=== PATIENT | female | born 1985 | race Caucasian/White ===

== ENCOUNTER 2017-07-20 13:09 | Emergency (ER) | payer OTHER ==
[2017-07-20 13:16] VITALS: BP 108/50; PULSE 106; TEMP 99.1; BMI 26.6
--- NOTE | 2017-07-20 15:47 | PDOC ---
History of Present Illness - General Chief Complaint: Cold Symptoms Stated Complaint: FEVER, COUGH Time Seen by Provider: 07/20/17 15:22 History Source: Patient Exam Limitations: No Limitations - History of Present Illness Initial Comments: 07/20/17 17:50 Patient is a 31-year-old female, no significant medical history currently on no medication presents with generalized body aches, fever, runny nose, congestion, child and with similar symptoms. Past Medical History: [Denies]. Allergies: No known allergies Medications: [None] Family History: Non-contributory Social History: Denies smoking, alcohol use, or IVDU Review of Systems GENERAL/CONSTITUTIONAL: [Fever, body aches, chills. No weakness. No weight change.] HEAD, EYES, EARS, NOSE AND THROAT: [No change in vision. No ear pain or discharge. No sore throat. Nasal congestion] CARDIOVASCULAR: [No chest pain or shortness of breath.] RESPIRATORY: [Moist cough, wheezing, or hemoptysis.] GASTROINTESTINAL: [No nausea, vomiting, diarrhea or constipation. No rectal bleeding.] GENITOURINARY: [No dysuria, frequency, or change in urination.] MUSCULOSKELETAL: [No joint or muscle swelling or pain. No neck or back pain.] SKIN AND BREASTS: [No rash or easy bruising.] NEUROLOGIC: [No headache, vertigo, loss of consciousness, or loss of sensation.] PSYCHIATRIC: [No depression or anxiety.] ENDOCRINE: [No increased thirst. No abnormal weight change.] HEMATOLOGIC/LYMPHATIC: [No anemia, easy bleeding, or history of blood clots.] ALLERGIC/IMMUNOLOGIC: [No hives or skin allergy. No latex allergy.] Physical Exam: GENERAL: [The patient is awake, alert, and fully oriented, in no acute distress. ] HEAD: [Normal with no signs of trauma.] EYES: [Pupils equal, round and reactive to light, extraocular movements intact, sclera anicteric, conjunctiva clear.] ENT: [Ears normal, nares patent, oropharynx clear without exudates. Moist mucous membranes. No uvula deviation] NECK: [Normal range of motion, supple without lymphadenopathy, JVD, or masses.] LUNGS: [Rhonchi bilaterally, no wheezes.] HEART: [Regular rate and rhythm, normal S1 and S2 without murmur, rub or gallop. ] ABDOMEN: [Soft, nontender, normoactive bowel sounds. No guarding, no rebound. No masses. No bruising or abrasions] RECTAL : [Guaiac negative, normal rectal tone.] MUSCULOSKELETAL: [Normal range of motion, no edema. No clubbing or cyanosis. No cords, erythema, or tenderness. No CVA Tenderness with fist.] NEUROLOGICAL: [Cranial nerves II through XII grossly intact. Normal speech, normal gait.] PSYCH: [Normal mood, normal affect.] SKIN: [Warm, Dry, normal turgor, no rashes or lesions noted.] 07/20/17 17:51 Past History - Past Medical History Allergies/Adverse Reactions: Allergies Allergy/AdvReac Type Severity Reaction Status Date / Time No Known Allergies Allergy Verified 07/20/17 13:14 Home Medications: Ambulatory Orders Azithromycin [Zithromax 250mg Tablets -] 250 mg PO UTDICT #6 tab 07/20/17 Oseltamivir Phosphate [Tamiflu -] 75 mg PO BID #10 capsule 07/20/17 Asthma: No Cancer: No Cardiac Disorders: No COPD: No Diabetes: No HTN: No Seizures: No Thyroid Disease: No - Surgical History Abdominal Surgery: Yes (UMB.HERNIA) - Suicide/Smoking/Psychosocial Hx Smoking History: Never smoked Have you smoked in the past 12 months: No Information on smoking cessation initiated: No Hx Alcohol Use: No Drug/Substance Use Hx: No Hx Substance Use Treatment: No *Physical Exam - Vital Signs Last Vital Signs Temp Pulse Resp BP Pulse Ox 99.1 F 106 H 18 108/50 100 07/20/17 13:14 07/20/17 13:14 07/20/17 13:14 07/20/17 13:14 07/20/17 13:14 Medical Decision Making - Medical Decision Making 07/20/17 17:51 A/P: Patient with influenza-type illness, we will discharge patient on a of Tamiflu, has been also with strep throat patient with moist productive cough and rhonchi will DC also on azithromycin I discussed the physical exam findings, ancillary test results and final diagnoses with the patient. I answered all of the patient's questions. The patient was satisfied with the care received and felt comfortable with the discharge plan and treatment plan. The patient will call to arrange follow-up and will return to the Emergency Department with any new, persistent or worsening symptoms. *DC/Admit/Observation/Transfer Diagnosis at time of Disposition: Exposure to influenza, Influenza-like symptoms - Discharge Dispostion Disposition: HOME Condition at time of disposition: Stable Admit: No - Prescriptions Prescriptions: Azithromycin [Zithromax 250mg Tablets -] 250 mg PO UTDICT #6 tab Oseltamivir Phosphate [Tamiflu -] 75 mg PO BID #10 capsule - Referrals Referrals: [facility] [Provider Group] - Patient Instructions Additional Instructions: Increase fluids to prevent dehydration Tylenol for headache Motrin for fever greater than 101.0 Please followup with primary care in 3 days if symptoms persist Return to emergency department any increased cough, fever, inability to drink or other concerns - Post Discharge Activity Forms/Work/School Notes: Back to Work
== END 2017-07-20 15:48 | disposition home or self-care (01) ==
LOC: JERFT 13:09
DX: J11.1 Influenza due to unidentified influenza virus with other respiratory manifestations (principal)
CPT/HCPCS: 99281-25

== ENCOUNTER 2019-03-27 08:59 | Emergency (ER) | payer OTHER ==
[2019-03-27 09:05] VITALS: BP 105/65; PULSE 66; TEMP 98.2; BMI 22.8
--- NOTE | 2019-03-27 09:17 | PDOC ---
History of Present Illness - General Chief Complaint: Pain, Acute Stated Complaint: FACIAL SWELLING / PAIN Time Seen by Provider: 03/27/19 09:10 - History of Present Illness Initial Comments: 03/27/19 09:17 CHIEF COMPLAINT: multiple HISTORY OF PRESENT ILLNESS: 33 yo F with no significant PMH presents to [facility] with multiple complaints. Patient states the left side of her face was swollen two days ago, but the majority of it has subsided and now just the left side of her forehead and her lips are swollen. She also c/o of a small rash to the right side of her hip, as well as generalized itching and pain to all her joints. She denies any fever, chills, nausea, vomiting diarrhea. No recent travel or sick contacts. PAST MEDICAL HISTORY: Denies past medical history FAMILY HISTORY: Denies SOCIAL HISTORY: Denies tobacco, alcohol, illicit drug use. SURGICAL HISTORY: Denies ALLERGIES: No known drug allergies REVIEW OF SYSTEMS General/Constitutional: Denies fever or chills. Denies weakness, weight change. HEENT: Denies change in vision. Denies ear pain or discharge. Denies sore throat. Cardiovascular: Denies chest pain or shortness of breath. Respiratory: Denies cough, wheezing, or hemoptysis. Gastrointestinal: Denies nausea, vomiting, diarrhea or constipation. Denies rectal bleeding. Genitourinary: Denies dysuria, frequency, or change in urination. Musculoskeletal: Pain to all joints, swelling to fingers. Skin: Rash to right hip. Neurologic: Denies headache, vertigo, loss of consciousness, or loss of sensation. Psychiatric: Denies depression or anxiety. PHYSICAL EXAM General Appearance: Well-appearing, appropriately dressed. No apparent distress , no intoxication. HEENT: Mild swelling to left forehead and lips. NO swelling to tongue, throat, uvula. No evidence of respiratory compromise. EOMI, PERRLA, normal ENT inspection, normal voice, TMs normal, pharynx normal. No conjunctival pallor. No photophobia, scleral icterus. Neck: Supple. Trachea midline. No tenderness, rigidity, carotid bruit, stridor , lymphadenopathy, or thyromegaly. Respiratory/Chest: Lungs CTAB. No shortness of breath, chest tenderness, respiratory distress, accessory muscle use. No crackles, rales, rhonchi, stridor , wheezing, dullness Cardiovascular: RRR. S1, S2. No JVD, murmur, bradycardia, tachycardia. Vascular Pulses: Dorsalis-Pedis (R): 2+, Dorsalis-Pedis (L): 2+ Gastrointestinal/Abdominal: Normal bowel sounds. Abdomen soft, non-distended. No tenderness or rebound tenderness. No organomegaly, pulsatile mass, guarding , hernia, hepatomegaly, splenomegaly. Lymphatic: No adenopathy, tenderness. Musculoskeletal/Extremities: Mild swelling to DIP and PIP of all fingers. FROM to all digits and extremities. Integumentary: Pruritic, macular, erythematous rash to R hip approximately 6 cm in diameter. Appropriate color, dry, warm. 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 Fully oriented, alert. Appropriate mood/affect. Motor strength 5/5. No appreciable EOM palsy, facial droop or sensory deficit. Past History - Past Medical History Allergies/Adverse Reactions: Allergies Allergy/AdvReac Type Severity Reaction Status Date / Time No Known Allergies Allergy Verified 03/27/19 09:05 Home Medications: Ambulatory Orders Azithromycin [Zithromax 250mg Tablets -] 250 mg PO UTDICT #6 tab 07/20/17 Oseltamivir Phosphate [Tamiflu -] 75 mg PO BID #10 capsule 07/20/17 Prednisone [Deltasone] 40 mg PO DAILY #8 tablet 03/27/19 Asthma: No Cancer: No Cardiac Disorders: No COPD: No Diabetes: No HTN: No Seizures: No Thyroid Disease: No - Surgical History Abdominal Surgery: Yes (UMB.HERNIA) - Psycho Social/Smoking Cessation Hx Smoking History: Never smoked Have you smoked in the past 12 months: No Hx Alcohol Use: No Drug/Substance Use Hx: No Hx Substance Use Treatment: No *Physical Exam - Vital Signs Last Vital Signs Temp Pulse Resp BP Pulse Ox 98.2 F 66 16 105/65 98 03/27/19 09:02 03/27/19 09:02 03/27/19 09:02 03/27/19 09:02 03/27/19 09:02 Medical Decision Making - Medical Decision Making 03/27/19 09:26 33 yo F with no significant PMH presents to [facility] with multiple complaints including pruritis, edema, and arthralgia. Suspicious for scleroderma vs autoimmune condition. -prednisone taper f/u with rheum/derm Advised patient to take medication as prescribed and follow up with rheumatology and derm within the next 1-2 weeks. Advised patient of signs and symptoms for return to ED. Patient verbalized understanding and agrees to plan. Discharge - Discharge Information Problems reviewed: Yes Clinical Impression/Diagnosis: Generalized pruritus Arthralgia Qualifiers: Joint pain location: unspecified Qualified Code(s): M25.50 - Pain in unspecified joint Condition: Stable Disposition: HOME - Admission No - Additional Discharge Information Prescriptions: Prednisone [Deltasone] 40 mg PO DAILY #8 tablet - Follow up/Referral Referrals: Osmin Conde MD [Staff Physician] - Kalen Brizuela MD [Non Staff, Medical] - Beth Ariza MD [Staff Physician] - - Patient Discharge Instructions Patient Printed Discharge Instructions: DI for Arthralgia Print Language: INDONESIAN - Post Discharge Activity
[2019-03-27] MEDS ORDERED: predniSONE 20 MG TABLET (UD) PO ONE (09:26)
[2019-03-27] MEDS ORDERED: predniSONE 20 MG TABLET (UD) ONE (09:28)
== END 2019-03-27 09:51 | disposition home or self-care (01) ==
LOC: JERFT 08:59
DX: M25.50 Pain in unspecified joint (principal)
CPT/HCPCS: 99281-25